=== PATIENT | female | born 1960 | race African-American/Black ===

== ENCOUNTER 2023-11-23 12:08 | Emergency (ER) | payer BC, OTHER, SELFPAY ==
[2023-11-23] MEDS ORDERED: Metoclopramide HCl 10 MG (2 mL) VIAL ONE (13:10)
[2023-11-23] MEDS ORDERED: diphenhydrAMINE 50 MG/ML VIAL ONE (13:10)
[2023-11-23 13:46] LABS: Bilirubin Neg (Negative); Blood, Urine Negative (Negative); Glucose, Urine (Dipstick) Normal (Negative); Ketone, Urine Negative (Negative); Leukocyte 25 (Negative); Nitrite Negative (Negative); Protein, Urine (Dipstick) Negative (Neg-Trace); Urobilinogen Normal mg/dL (Less than 2)
[2023-11-23 13:52] LABS: Clarity Clear (Clear)
[2023-11-23 13:56] LABS: #Basophils 0.02 10x3/uL (0.0-0.2); #Eosinphils 0.14 10x3/uL (0.0-0.5); #Monocytes 0.43 10x3/uL (0.0-1.1); #Neutrophils 1.93 10x3/uL (1.5-8.4); %Basophils 0.4 % (0.0-2.0); %Eosinophils 3.1 % (0.0-6.0); %Lymphocytes 43.1 % (18.0-47.0); %Monocytes 9.7 % (0.0-10.0); %Neutrophils 43.5 % (40.0-75.0); Hematocrit 42.4 % (34.9-44.5); Hemoglobin 14.4 g/dL (12.0-15.5); Mean Corpuscular Hemoglobin 35.4 pg (27.0-33.0); Mean Corpuscular Volume 104.2 fL (81.6-98.3); Mean Platelet Volume 11.6 fL (7.4-10.4); Platelet Count 124 10x3/uL (150-450); RBC Distribution Width 13.3 % (11.5-14.5); Red Blood Cell (RBC) Count 4.07 10x6/uL (3.90-5.03); White Blood Cell (WBC) Count 4.5 10x3/uL (3.5-10.5)
[2023-11-23 14:10] LABS: Troponin I Less than 0.010 ng/mL (< 0.028)
[2023-11-23 14:22] LABS: CAUTI Indications for Culture Pelvic or flank pain; RBC/HPF 0-3 HPF (0-3); Squamous Epithelial Greater than 50 HPF (0-3); WBC/HPF 0-3 HPF (0-3)
[2023-11-23 14:23] LABS: Bacteria/HPF 3+ HPF (None Seen)
[2023-11-23 14:24] LABS: Urine Culture Reflex No No
[2023-11-23 14:25] LABS: Influenza A by NAA Not Detected (NotDetected); Influenza B by NAA Not Detected (NotDetected); SARS-CoV-2 NAA Rapid Test Not Detected (NotDetected)
[2023-11-23 14:29] LABS: Platelet Adequacy Comment PLT clumps seen-LOW; Platelet Clumps SLIGHT
[2023-11-23 14:30] LABS: Ovalocytes SLIGHT = 2-5 cells (100X) (0-1/hpf)
[2023-11-23 14:31] LABS: Macrocytosis SLIGHT = 6-15 cells (100X) (0-5/hpf)
[2023-11-23 16:36] LABS: ALT (SGPT) 53 U/L (8-55); AST (SGOT) 42 U/L (5-34); Albumin 3.4 g/dL (3.4-4.8); Alkaline Phosphatase 52 U/L (40-110); Anion Gap 12 mmol/L (10-20); BUN (Urea Nitrogen) 9 mg/dL (9.8-20.1); Bilirubin, Total 0.4 mg/dL (0.2-1.2); Calc. Creatinine Clearance 0 mL/min (70-130); Calcium 9.2 mg/dL (7.8-10.44); Carbon Dioxide 20 mmol/L (23-31); Chloride 111 mmol/L (98-107); Estimated GFR 77; Globulin 3.6 g/dL (2.4-3.5); Glucose 79 mg/dL (80-115); Lipase 52 U/L (8-78); Potassium 3.6 mmol/L (3.5-5.1); Sodium 139 mmol/L (136-145)
== END 2023-11-23 17:55 | disposition home or self-care (01) ==
LOC: CSHERS 12:08
DX: B34.9 Viral infection, unspecified (principal); F17.210 Nicotine dependence, cigarettes, uncomplicated
CPT/HCPCS: 36415; 71045; 80053; 81001; 83690; 84484; 85025; 87081; 87430; 93005; 96374; 96375; J1200; J2765